=== PATIENT | female | born 1995 | race Hispanic/Latino ===

== ENCOUNTER 2018-02-22 01:23 | Emergency (ER) | payer MEDICAID ==
[2018-02-22] MEDS ORDERED: Silver Sulfadiazine 1% CREAM (50 gm) TOP STA (01:29)
[2018-02-22 01:30] VITALS: RESP 16; TEMP 97.6
--- NOTE | 2018-02-22 01:34 | ED PDOC ---
HPI: General Adult Time Seen by Provider: 02/22/18 01:28 Chief Complaint (Nursing): Abnormal Skin Integrity History Per: Patient History/Exam Limitations: no limitations Onset/Duration Of Symptoms: Hrs Current Symptoms Are (Timing): Still Present Additional Complaint(s): Patient with no PMHx states she sustained a sunburn on Tuesday, had burning to bilateral shoulders, upper back, upper chest where she had sun exposure, states burning has improved but now has itching to exposure areas. No fevers, chills, nausea, vomiting. Past Medical History Reviewed: Historical Data, Nursing Documentation, Vital Signs Vital Signs: Last Vital Signs Temp 97.6 F 02/22/18 01:25 Pulse 99 H 02/22/18 01:25 Resp 16 02/22/18 01:25 BP 132/88 02/22/18 01:25 Pulse Ox 99 02/22/18 05:04 - Medical History PMH: No Chronic Diseases - Family History Family History: States: Unknown Family Hx - Home Medications Home Medications: Ambulatory Orders Medication Instructions Recorded predniSONE [predniSONE Tab] 60 mg PO DAILY #9 tab 02/22/18 - Allergies Allergies/Adverse Reactions: Allergies Allergy/AdvReac Type Severity Reaction Status Date / Time No Known Allergies Allergy Verified 02/22/18 01:27 Review of Systems ROS Statement: Except As Marked, All Systems Reviewed And Found Negative Skin: Positive for: Rash Physical Exam - Reviewed Nursing Documentation Reviewed: Yes Vital Signs Reviewed: Yes - Physical Exam Appears: Positive for: Well, Non-toxic, No Acute Distress Head Exam: Positive for: ATRAUMATIC, NORMAL INSPECTION, NORMOCEPHALIC Skin: Positive for: Rash (1st degree healing burn in sun distribution of bilateral shoulders, upper chest, back; warm to touch, no spreading erythema, no skin breakdown) Eye Exam: Positive for: EOMI, Normal appearance, PERRL ENT: Positive for: Normal ENT Inspection Neck: Positive for: Normal, Painless ROM Cardiovascular/Chest: Positive for: Regular Rate, Rhythm Respiratory: Positive for: CNT, Normal Breath Sounds Gastrointestinal/Abdominal: Positive for: Normal Exam, Soft Back: Positive for: Normal Inspection Extremity: Positive for: Normal ROM Neurologic/Psych: Positive for: Alert, Oriented - ECG O2 Sat by Pulse Oximetry: 99 Pulse Ox Interpretation: Normal Medical Decision Making Medical Decision MakinAM A/P: Patient with sunburn with itching -likely dermatitis related to sunburn -no topicals applied, patient states she took benadryl 50mg [employer]VE[employer]IG[employer] -will cover with silvadene and re-eval 155AM -patient reports similar symptoms -will order IV meds and reval 455AM -Patient sleeping -reports resolution of itching -advised to apply calomine/aloe to skin for relief -cautioned to use sunblock in future -well appearing, ambulatory, escorted by friend home Disposition - Clinical Impression Clinical Impression: First degree burn - Disposition Referrals: Jose Greenwood MD [Primary Care Provider] - Disposition: Routine/Home Disposition Time: 05:00 Condition: IMPROVED Prescriptions: predniSONE [predniSONE Tab] 60 mg PO DAILY #9 tab Instructions: Skin Muñoz Forms: [facility] ([place])
[2018-02-22] MEDS ORDERED: DiphenhydrAMINE 50 mg/ml Inj IVP STA (03:03)
[2018-02-22] MEDS ORDERED: DiphenhydrAMINE 50 mg/ml Inj ONE (03:06)
[2018-02-22 05:28] VITALS: BP 130/86; PULSE 89; O2SAT 97
== END 2018-02-22 05:35 | disposition home or self-care (01) ==
LOC: H.ER 01:23
DX: L55.0 Sunburn of first degree (principal)
CPT/HCPCS: 96374; 96375; 99283; J1200; J2930

== ENCOUNTER 2018-05-02 07:58 | Day surgery (SDC) | payer MEDICAID ==
[2018-05-02] MEDS ORDERED: Lactated Ringer's 500 ML IV ONE (08:35)
[2018-05-02] MEDS ORDERED: Propofol 10 mg/ml Inj (20 ML) ONE (08:41)
[2018-05-02 10:51] VITALS: TEMP 98
[2018-05-02 11:11] VITALS: BP 113/60; PULSE 85; RESP 15; O2SAT 100
== END 2018-05-02 11:40 | disposition home or self-care (01) ==
LOC: H.ENDO 07:58
PROVIDERS: ATTEND Internal Medicine Gastroenterology
DX: K29.50 Unspecified chronic gastritis without bleeding (principal); E66.01 Morbid (severe) obesity due to excess calories
CPT/HCPCS: 43239; 88305; J2001; J2704; J7120